=== PATIENT | male | born 1990 | race Caucasian/White ===

== ENCOUNTER → 2018-08-16 | Outpatient (CLI) | payer OTHER ==
--- NOTE | 2018-08-16 08:15 | REP ---
MAXILLOFACIAL CT WITHOUT CONTRAST: HISTORY: Right zygomatic arch fracture. The sinuses are clear. The ostiomeatal units are patent. The middle and inferior nasal turbinates are partially paradoxical. There is galina bullosa of the middle nasal turbinates. There is minimal deviation of the nasal septum to the right. A spur is present arising from the right side of the nasal septum. The cribriform plate, medial pillai of the orbits and optic canals are intact. The carotid canals form a segment of the posterolateral pillai of the sphenoid sinus. The sphenoid sinus septa insert into the internal carotid canal pillai. There is no acute fracture. IMPRESSION: There is no acute or chronic sinusitis. Electronically Signed by Sudarshan Maier MD 08/16/2018 08:21 A
== END ==
LOC: M RAD 06:56
PROVIDERS: ATTEND Family Medicine
DX: Z96.9 Presence of functional implant, unspecified (principal); S02.40E Zygomatic fracture, right side; X58.XXXS Exposure to other specified factors, sequela